=== PATIENT | male | born 1960 | race American Indian/Alaskan Native ===

== ENCOUNTER 2017-02-02 15:51 | Emergency (ER) | payer OTHER ==
[2017-02-02 16:04] VITALS: BP 154/104
--- NOTE | 2017-02-02 16:04 | Emergency Department Report ---
Chief Complaint: Abdominal Pain Stated Complaint: ABD/LOWER BACK PAIN Time Seen by Provider: 02/02/17 16:01 - HPI History of Present Illness: PT c/o R sided abd pain x 1 week PT reports hematuria today - ROS Review of Systems: + flank pain + hematuria - diarrhea - Exam Physical Exam: PT looks well, non toxic. no acute distress in triage No CVA tenderness lori MSE screening note: Focused history and physical exam performed. Due to findings the following was ordered: labs ED Disposition for MSE Condition: Stable
[2017-02-02 16:26] LABS: Basophils % (Auto) 0.6 % (0.0-1.8); Eosinophils % (Auto) 3.9 % (0.0-4.3); Hemoglobin 15.7 gm/dl (11.8-15.2); Mean Corpuscular HGB Conc 32 % (32-34); Mean Corpuscular Hemoglobin 27 pg (28-32); Mean Corpuscular Volume 84 fl (84-94); Platelet Count 202 K/mm3 (140-440); Red Blood Count 5.81 M/mm3 (3.65-5.03); Red Cell Distribution Width 13.8 % (13.2-15.2); White Blood Count 6.7 K/mm3 (4.5-11.0)
[2017-02-02 16:39] LABS: Alanine Aminotransferase 22 units/L (7-56); Albumin 4.4 g/dL (3.9-5); Albumin/Globulin Ratio 1.3 %; Alkaline Phosphatase 74 units/L (35-129); Anion Gap 23 mmol/L; BUN/Creatinine Ratio 11.81; Blood Urea Nitrogen 13 mg/dL (9-20); Calcium 9.4 mg/dL (8.4-10.2); Carbon Dioxide 22 mmol/L (22-30); Chloride 100.8 mmol/L (98-107); Glucose 96 mg/dL (75-100); Lipase 28 units/L (13-60); Potassium 4.2 mmol/L (3.6-5.0); Sodium 142 mmol/L (137-145); Total Protein 7.9 g/dL (6.3-8.2)
[2017-02-02] MEDS ORDERED: NACL 0.9% 1000 ML 1,000 ML IV ONE (18:02)
--- NOTE | 2017-02-02 18:02 | Cat Scan Report ---
FINAL REPORT EXAM: CT ABDOMEN PELVIS WO CON HISTORY: flank pain/abd pain TECHNIQUE: CT abdomen and pelvis without contrast PRIORS: None. FINDINGS: No acute abnormality identified in the lung bases. No focal abnormality identified within the liver parenchyma. The spleen demonstrates normal size and attenuation. No pancreatic abnormalities seen. There is mild right hydronephrosis with prominence of the renal collecting system. Ureteral stranding. At the right ureteral vesicle junction just proximal to the margin of the urinary bladder there is a 0.32 centimeter obstructing calculus. The left kidney demonstrates no evidence for hydronephrosis or nephrolithiasis. The adrenal glands are unremarkable. Abdominal aorta is normal in caliber. No pathologically enlarged lymph nodes are identified. No signs of free fluid or free air No evidence of small bowel dilatation. No evidence of colonic dilatation. No pericolonic inflammatory change seen. IMPRESSION: 0.3 centimeter right ureterovesical junction calculus with mild hydronephrosis
[2017-02-02 19:09] LABS: Bilirubin,Urine NEG (Negative); Blood,Urine LG (Negative); Ketones,Urine NEG (Negative); Leukocyte Esterase,Urine NEG (Negative); Mucus,Urine FEW /HPF; Nitrite,Urine NEG (Negative); Urobilinogen,Urine < 2.0 mg/dL (<2.0); WBC,Urine < 1.0 /HPF (0.0-6.0)
--- NOTE | 2017-02-05 18:30 | Emergency Department Report ---
Entered by CORBIN HURTADO, acting as scribe for OSWALDO MALLORY NP. <MELISSA WHITMOREHARLEYTIARA A - Last Filed: 02/05/17 18:29> ED Abdominal Pain HPI - General Chief Complaint: Abdominal Pain Stated Complaint: RIGHT FLANK PAIN Time Seen by Provider: 02/02/17 16:01 - Related Data Previous Rx's Medication Instructions Recorded Last Taken Type HYDROcodone/APAP 5-325 [[place] 1 each PO Q6HR PRN #20 tablet 02/02/17 Unknown Rx 5/325] Tamsulosin [Flomax] 0.4 mg PO QDAY #30 cap 02/02/17 Unknown Rx Allergies Allergy/AdvReac Type Severity Reaction Status Date / Time No Known Allergies Allergy Verified 02/02/17 16:05 ED Review of Systems ROS: Stated complaint: ABD/LOWER BACK PAIN Other details as noted in HPI ED Past Medical Hx - Medications Home Medications: Home Medications Medication Instructions Recorded Confirmed Last Taken Type HYDROcodone/APAP 5-325 [[place] 1 each PO Q6HR PRN #20 tablet 02/02/17 Unknown Rx 5/325] Tamsulosin [Flomax] 0.4 mg PO QDAY #30 cap 02/02/17 Unknown Rx ED Course Vital Signs 02/02/17 16:02 Temperature 98.5 F Pulse Rate 74 Respiratory 16 Rate Blood Pressure 154/104 O2 Sat by Pulse 100 Oximetry ED Medical Decision Making - Lab Data Result diagrams: 02/02/17 16:08 02/02/17 16:08 - Medical Decision Making 5. Urinalysis results back and show no signs of urinary tract infection. 6. Discussed with patient to follow up with Jb tomorrow. 7. Patient will be discharged home on Flomax and [place] for pain. 8. Patient is in no distress vital signs are normal patient understands instructions given. Critical care attestation.: If time is entered above; I have spent that time in minutes in the direct care of this critically ill patient, excluding procedure time. ED Disposition Clinical Impression: Kidney stone on right side Disposition: DC-01 TO HOME OR SELFCARE Is pt being admited?: No Does the pt Need Aspirin: No Condition: Stable Instructions: Kidney Stones (ED), Renal Colic (ED), How to Strain Your Urine ( ED) Prescriptions: HYDROcodone/APAP 5-325 [[place] 5/325] 1 each PO Q6HR PRN #20 tablet PRN Reason: Pain Tamsulosin [Flomax] 0.4 mg PO QDAY #30 cap Referrals: SUSAN KELLY MD [Primary Care Provider] - 3-5 Days LONDON MAY MD [Staff Physician] - 3-5 Days WIN CANALES MD [Staff Physician] - 3-5 Days Forms: Work/School Release Form(ED) Time of Disposition: 19:35 <ELLYNOSWALDO HARDY - Last Filed: 02/05/17 18:30> ED Abdominal Pain HPI - General Source: patient Mode of arrival: Ambulatory Limitations: No Limitations - History of Present Illness Initial Comments: This is a 56 y/o male, nontoxic, well nourished in appearance, no acute signs of distress presents with constant right sided lower abd pain and right flank pain that started 4 days ago. Patient stated he thinks he saw blood during urination today that is described as dark yellowish with dark red colored. Patient stated he has been experiencing these symptoms for 1 week. Patient describes right sided lower abd pain as aching with aching right flank pain with level of 8/10. Patient denies any injurt or trauma to back or abd, fever, chills, RAO, numbness, tingling, chest pain, SOB, headache, dizziness, dysuria, polyuria, blurry vision, nausea, diarrhea, constipation, vomiting, stiff neck. Patient stated his last bowel movement and voided this morning with normal consistency. Patient denies recent travels. Patient denies any drug allergies. Denies significant past medical history. Patient stated is currently following up with Dr. Kelly for his hypertension. Complaint: abdominal pain (RLQ), flank pain (right sided) -: days(s) (4) Location: RLQ, R flank Radiation: none Migration to: no migration Severity: mild Severity scale (0 -10): 4 Quality: sharp Consistency: constant Improves With: nothing Worsens With: nothing Associated Symptoms: denies other symptoms, hematuria. denies: nausea, vomiting , diarrhea, fever, chills, constipation, dysuria, hematemesis, hematochezia, melena, anorexia, syncope ED Review of Systems Comment: All other systems reviewed and negative Constitutional: denies: chills, fever Eyes: denies: eye pain, eye discharge, vision change ENT: denies: ear pain, throat pain Respiratory: denies: cough, shortness of breath, wheezing Cardiovascular: denies: chest pain, palpitations Endocrine: no symptoms reported Gastrointestinal: abdominal pain (RLQ and right flank pain). denies: nausea, diarrhea, constipation, hematemesis, melena, hematochezia Genitourinary: hematuria. denies: urgency, dysuria Musculoskeletal: denies: joint swelling, arthralgia Skin: denies: rash, lesions Neurological: denies: headache, weakness, paresthesias Psychiatric: denies: anxiety, depression Hematological/Lymphatic: denies: easy bleeding, easy bruising ED Past Medical Hx - Past Medical History Previous Medical History?: No - Surgical History Past Surgical History?: Yes Hx Appendectomy: Yes Additional Surgical History: achilles tendon - Social History Smoking Status: Never Smoker Substance Use Type: None ED Physical Exam - General Limitations: No Limitations General appearance: alert, in no apparent distress - Head Head exam: Present: atraumatic, normocephalic - Eye Eye exam: Present: normal appearance, PERRL, EOMI. Absent: scleral icterus, conjunctival injection, nystagmus, periorbital swelling, periorbital tenderness Pupils: Present: normal accommodation - ENT ENT exam: Present: normal exam, normal orophraynx, mucous membranes moist, TM's normal bilaterally, normal external ear exam. Absent: mucous membranes dry - Neck Neck exam: Present: normal inspection, full ROM. Absent: tenderness, meningismus, lymphadenopathy, thyromegaly - Respiratory Respiratory exam: Present: normal lung sounds bilaterally. Absent: respiratory distress, wheezes, rales, rhonchi, stridor, chest wall tenderness, accessory muscle use, decreased breath sounds, prolonged expiratory - Cardiovascular Cardiovascular Exam: Present: regular rate, normal rhythm, normal heart sounds. Absent: bradycardia, tachycardia, irregular rhythm, systolic murmur, diastolic murmur, rubs, gallop - GI/Abdominal GI/Abdominal exam: Present: soft, normal bowel sounds. Absent: distended, tenderness, guarding, rebound, rigid, diminished bowel sounds, hyperactive bowel sounds, hypoactive bowel sounds, mass, bruit - Expanded GI/Abdominal Exam Expanded GI/Abdominal exam: Absent: psoas sign, obturator sign, heel tap sign, Grullon's sign, Rovsing's sign, tenderness at Mcburney's Point, ascites - Rectal Rectal exam: Present: deferred - Extremities Exam Extremities exam: Present: normal inspection, full ROM, normal capillary refill. Absent: tenderness, pedal edema, joint swelling, calf tenderness - Back Exam Back exam: Present: normal inspection, full ROM. Absent: tenderness, CVA tenderness (R), CVA tenderness (L), muscle spasm, paraspinal tenderness, vertebral tenderness, rash noted - Neurological Exam Neurological exam: Present: alert, oriented X3, CN II-XII intact, normal gait. Absent: abnormal gait, motor sensory deficit - Psychiatric Psychiatric exam: Present: normal affect, normal mood - Skin Skin exam: Present: warm, dry, intact, normal color. Absent: rash ED Course - Reevaluation(s) Reevaluation #1: 02/02/17 19:02 Patient is sign out to Libra Whitmore. Patient is stable with no signs of distress noted. - Consultations Consultation #1: 02/02/17 18:57 Consulted with Win Slaughter and Dr. Vann. As per Dr. Acevedo, patient to be prescribed Flomax and pain medication and f/u with him. ED Medical Decision Making - Lab Data Result diagrams: 02/02/17 16:08 02/02/17 16:08 - Medical Decision Making Ed course: This is a 56 male that presents with mild hydronephrosis with 0.3 obstructing calculus 1- patient was consulted with Dr. Mtz and Dr. Canales. 2- Ct of abd/pelvis wo contrast has been obtained 3- IV normal saline 1L administered 4- patient was instructed to follow-up with Dr. Canales within 24 hours. 5- UA is still pending. Patient is signed out to Usman Whitmore. Patient is stable with no signs of distress currently and waiting for UA. This documentation as recorded by the BRYANT archer RYAN,accurately reflects the service I personally performed and the decisions made by me,OSWALDO MALLORY, ZHAO.
== END 2017-02-02 19:51 | disposition home or self-care (01) ==
LOC: ED 15:51
DX: N20.0 Calculus of kidney (principal)
CPT/HCPCS: 36415; 74176; 80053; 81001; 83690; 85025; 96360; 99284; J7030